=== PATIENT | female | born 1975 | race Caucasian/White ===

== ENCOUNTER 2017-01-20 22:29 | Emergency (ER) | payer BC, OTHER ==
[~2017-01-20] VITALS: Ht 147.3 cm; Wt 61.7 kg
[2017-01-20 22:35] VITALS: BP 129/87; PULSE 95; TEMP 37; O2SAT 99; Ht 147.3 cm; Wt 61.7 kg
[2017-01-20] MEDS ORDERED: OXYCODONE IR HOME PACK PO ONE (23:30)
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
== END 2017-01-20 23:49 | disposition home or self-care (01) ==
LOC: C.EDB 22:30 → C.EDC 23:49
DX: S80.11XA Contusion of right lower leg, initial encounter (principal); V47.0XXA Car driver injured in collision with fixed or stationary object in nontraffic accident, initial encounter; Z88.0 Allergy status to penicillin; Z88.8 Allergy status to other drugs, medicaments and biological substances